=== PATIENT | male | born 1995 | race Caucasian/White ===

== ENCOUNTER 2020-01-15 19:21 | Emergency (ER) | payer BC ==
[2020-01-15 20:08] LABS: BASOPHILS # (AUTO) 0.1 10^3/uL (0.0-0.1); BASOPHILS % (AUTO) 0.9 %; EOSINOPHILS # (AUTO) 0.4 10^3/uL (0.0-0.7); EOSINOPHILS % (AUTO) 3.3 %; LYMPHOCYTES # (AUTO) 3.2 10^3/uL (1.5-3.5); LYMPHOCYTES % (AUTO) 28.9 %; MEAN CORPUSCULAR HGB CONC 35.6 g/dL (32.0-36.0); MEAN CORPUSCULAR VOLUME 84.3 fL (80.0-94.0); MEAN PLATELET VOLUME 9.1 fL (7.4-11.4); MONOCYTES % (AUTO) 8.9 %; NEUTROPHILS # (AUTO) 6.4 10^3/uL (1.5-6.6); NEUTROPHILS % (AUTO) 57.4 %; PLT - PLATELET COUNT 310 10^3/uL (130-450); RED BLOOD COUNT 5.34 10^6/uL (4.70-6.10); RED CELL DISTRIBUTION WIDTH 12.1 % (12.0-15.0); WHITE BLOOD COUNT 11.1 x10^3/uL (4.8-10.8)
[2020-01-15] MEDS ORDERED: LORazepam 2 MG/ML VIAL IVP STA (20:12)
[2020-01-15] MEDS ORDERED: KETOROLAC 30 MG/ML VIAL IVP STA (20:12)
--- NOTE | 2020-01-15 20:13 | XRAY Report ---
Reason: Chest Pain Procedure Date: 01/15/2020 Accession Number: [id number] / [id number] Procedure: XR - Chest 1 View X-Ray CPT Code: 33562 Final Report FULL RESULT: EXAM: CHEST RADIOGRAPHY EXAM DATE: 01/15/2020 08:08 PM. CLINICAL HISTORY: Chest Pain. COMPARISON: None. TECHNIQUE: 1 view. FINDINGS: Lungs/Pleura: No focal opacities evident. No pleural effusion. No pneumothorax. Mediastinum: Within exam limitations, the cardiomediastinal contour is normal. Other: None. IMPRESSION: Normal single view chest. RADIA
[2020-01-15 20:21] LABS: ALBUMIN 4.3 g/dL (3.2-5.5); ALBUMIN/GLOBULIN RATIO 1.2 (1.0-2.2); BILIRUBIN,TOTAL 0.9 mg/dL (0.2-1.0); CALCIUM 9.3 mg/dL (8.5-10.3); CREATININE 1.2 mg/dL (0.6-1.2); TOTAL PROTEIN 7.8 g/dL (6.7-8.2)
--- NOTE | 2020-01-15 20:26 | ED Physician Documentation ---
PD HPI CHEST PAIN - Stated complaint Stated Complaint: CHEST/UPPER BACK PX - Chief complaint Chief Complaint: Cardiac - History obtained from History obtained from: Patient - History of Present Illness Timing - onset: Yesterday Timing - onset during: Rest Timing - duration: Days (2-3) Timing - details: Gradual onset, Constant Pain level max: 2 Pain level now: 1 Quality: Aching. No: Pressure, Tightness, Sharp, Tearing, Dull, Stabbing, Throbbing, Indigestion Radiation: No: Jaw, Neck, Back, Abdominal, Left upper extremity, Right upper extremity Improved by: Rest Worsened by: Inspiration (He only feels is at the end of a very deep inspiration) Associated symptoms: No: Shortness of air, Diaphoresis, Nausea, Vomiting, Feeling faint / dizzy, General Weakness, Palpitations, Cough Similar symptoms before: Has not had sx before - Additional information Additional information: 24-year-old male presents to the emergency department stating that he has left upper chest pain and left back chest pain. This is mainly at the end of a very deep breath. This been constant for 3 days. He states that he stopped smoking marijuana a few months ago and started smoking cigarettes. He is very concerned that he may have cancer. He is tearful in the emergency department. Appears very anxious. Better with rest, worse with deep breathing. No recent travel. No recent illness. No history of blood clots. No recent immobilization. Review of Systems Constitutional: denies: Fever, Chills Cardiac: denies: Palpitations Respiratory: denies: Dyspnea, Cough, Hemoptysis, Wheezing GI: denies: Abdominal Pain, Nausea, Vomiting Skin: denies: Rash Musculoskeletal: denies: Neck pain, Back pain Neurologic: denies: Headache PD PAST MEDICAL HISTORY - Past Medical History Past Medical History: Yes Psych: Depression, Anxiety - Past Surgical History Past Surgical History: No - Present Medications Home Medications: Ambulatory Orders Medication Instructions Recorded Confirmed Bupropion HCl [Wellbutrin] 06/29/14 06/29/14 - Allergies Allergies/Adverse Reactions: Allergies Allergy/AdvReac Type Severity Reaction Status Date / Time No Known Drug Allergies Allergy Verified 01/15/20 20:23 - Social History Does the pt smoke?: Yes Smoking Status: Current every day smoker Does the pt drink ETOH?: No Does the pt have substance abuse?: Yes Substance Use and Type: Marijuana - Family History Family history: reports: Non contributory PD ED PE NORMAL - Vitals Vital signs reviewed: Yes - General General: Alert and oriented X 3, Well developed/nourished, Other (Tearful and anxious) - HEENT HEENT: PERRL, Ears normal, Moist mucous membranes, Pharynx benign - Neck Neck: Supple, no meningeal sign, No bony TTP, No JVD, No bruit - Cardiac Cardiac: RRR, No murmur, Strong equal pulses - Respiratory Respiratory: No respiratory distress, Clear bilaterally - Abdomen Abdomen: Soft, Non tender, Non distended - Back Back: No spinal TTP, Other (No tenderness over the back or the chest wall. No crepitus. No ecchymosis) - Derm Derm: Warm and dry, No rash - Extremities Extremities: No edema, No calf tenderness / cord - Neuro Neuro: Alert and oriented X 3 - Psych Psych: Other (Very anxious) Results - Vitals Vitals: Vital Signs - 24 hr 01/15/20 01/15/20 01/15/20 19:26 20:35 20:41 Temperature 36.1 C L Heart Rate 94 71 Respiratory 16 19 Rate Blood Pressure 124/78 134/80 H O2 Saturation 99 99 Oxygen O2 Source Room air - EKG (time done) 1940 Rate: Rate (enter#) (84) Rhythm: NSR [place]: Normal Intervals: Normal [place] QRS: Normal Ischemia: ST elevation c/w repol - Labs Labs: Laboratory Tests 01/15/20 01/15/20 01/15/20 20:00 20:00 20:00 WBC 11.1 H RBC 5.34 Hgb 16.0 Hct 45.0 MCV 84.3 MCH 30.0 MCHC 35.6 RDW 12.1 Plt Count 310 MPV 9.1 Neut # (Auto) 6.4 Lymph # (Auto) 3.2 [place] # (Auto) 1.0 Eos # (Auto) 0.4 Baso # (Auto) 0.1 Absolute Nucleated RBC 0.00 Nucleated RBC % 0.0 Sodium 139 Potassium 3.6 Chloride 108 Carbon Dioxide 23 Anion Gap 8.0 BUN 18 Creatinine 1.2 Estimated GFR (MDRD) 74 L Glucose 102 H Calcium 9.3 Total Bilirubin 0.9 AST 19 ALT 22 Alkaline Phosphatase 77 Troponin I High Sens < 2.3 L Total Protein 7.8 Albumin 4.3 Globulin 3.5 Albumin/Globulin Ratio 1.2 Lipase 49 - Rads (name of study) Chest x-ray Radiology: Prelim report reviewed, EMP read contemporaneously, See rad report (No acute abnormality) PD MEDICAL DECISION MAKING - ED course Complexity details: reviewed results, re-evaluated patient, considered differential (No ST elevation [place], no aortic dissection, no PE, no tension pneumothorax, no aortic aneurysm), d/w patient ED course: Symptoms resolved with Toradol and Ativan. He feels much better. Appears to have had a panic attack. Possible mild inflammation, such as pleurisy from his cigarette smoking. No hypoxia. No tachypnea. No wheezing. We will have him follow-up with his doctor for further care. Patient counseled regarding signs and symptoms for which I believe and urgent re-evaluation would be necessary. Patient with good understanding of and agreement to plan and is comfortable going home at this time This document was made in part using voice recognition software. While efforts are made to proofread this document, sound alike and grammatical errors may occur. No evidence of pulmonary embolism Departure - Departure Disposition: 01 Home, Self Care Clinical Impression: Anxiety Chest pain Qualifiers: Chest pain type: unspecified Qualified Code(s): R07.9 - Chest pain, unspecified Condition: Good Instructions: ED Chest Pain Atypical Unkn Cause, ED Panic Attack Follow-Up: Your,doctor in 1 week [Other] Comments: Your testing is normal today. It does not show any evidence of a heart attack, blood clot in the lung, collapsed lung or cancer. Follow-up with your doctor for further care. Discharge Date/Time: 01/15/20 20:46
[2020-01-15 20:42] VITALS: BP 134/80
== END 2020-01-15 20:46 | disposition home or self-care (01) ==
LOC: ED 19:21
DX: F41.9 Anxiety disorder, unspecified (principal); R07.9 Chest pain, unspecified; F17.200 Nicotine dependence, unspecified, uncomplicated
CPT/HCPCS: 36415; 71045; 80053; 83690; 84484; 85025; 93005; 96374; 99284; J2060

== ENCOUNTER 2020-01-21 06:21 | Emergency (ER) | payer BC, OTHER ==
[2020-01-21 06:59] LABS: BASOPHILS # (AUTO) 0.1 10^3/uL (0.0-0.1); EOSINOPHILS # (AUTO) 0.4 10^3/uL (0.0-0.7); EOSINOPHILS % (AUTO) 4.1 %; HGB - HEMOGLOBIN 15.8 g/dL (14.0-18.0); LYMPHOCYTES # (AUTO) 3.2 10^3/uL (1.5-3.5); LYMPHOCYTES % (AUTO) 30.4 %; MEAN CORPUSCULAR HEMOGLOBIN 29.9 pg (27.0-31.0); MEAN CORPUSCULAR HGB CONC 35.4 g/dL (32.0-36.0); MEAN CORPUSCULAR VOLUME 84.5 fL (80.0-94.0); MEAN PLATELET VOLUME 9.1 fL (7.4-11.4); MONOCYTES # (AUTO) 0.9 10^3/uL (0.0-1.0); MONOCYTES % (AUTO) 8.1 %; NEUTROPHILS # (AUTO) 5.8 10^3/uL (1.5-6.6); NEUTROPHILS % (AUTO) 55.9 %; PLT - PLATELET COUNT 327 10^3/uL (130-450); RED BLOOD COUNT 5.28 10^6/uL (4.70-6.10); RED CELL DISTRIBUTION WIDTH 11.9 % (12.0-15.0); WHITE BLOOD COUNT 10.5 x10^3/uL (4.8-10.8)
[2020-01-21 07:08] LABS: ALBUMIN 4.3 g/dL (3.2-5.5); ALBUMIN/GLOBULIN RATIO 1.4 (1.0-2.2); BILIRUBIN,TOTAL 0.6 mg/dL (0.2-1.0); CREATININE 1.1 mg/dL (0.6-1.2); TOTAL PROTEIN 7.4 g/dL (6.7-8.2)
--- NOTE | 2020-01-21 07:27 | ED Physician Documentation ---
PD HPI GI BLEED - Stated complaint Stated Complaint: BLOODY STOOLS,LOWER BACK PX - Chief complaint Chief Complaint: Abd Pain - History obtained from History obtained from: Patient - History of Present Illness Timing - onset: How many years ago (1) Timing - duration: Years (1) Timing - details: Gradual onset, Still present, Waxing and waning Associated symptoms: BRBPR Contributing factors: No: Sick contact, Bad food, Travel, Recent antibiotics, Alcohol use, Aspirin use, NSAID use, Stress, Anticoagulated, Diabetes Worsened by: Other (BM) Similar symptoms before: Has not had sx before Recently seen: Not recently seen - Additional information Additional information: Previously well 24-year-old male has had an issue with some intermittent bloody stool for the past year. He does feel that he has some small mass that he can palpate near the rectum which will go away. He is here today because he has developed some pain in his lower back and anterior abdomen that it seems to be associated with his bowel movements. Review of Systems Constitutional: denies: Fever, Chills Ears: denies: Ear pain Nose: denies: Congestion Throat: denies: Sore throat Cardiac: denies: Chest pain / pressure Respiratory: denies: Dyspnea, Cough GI: reports: Abdominal Pain, Bloody / black stool. denies: Nausea, Vomiting, Constipation, Diarrhea : denies: Dysuria, Frequency Skin: denies: Rash Musculoskeletal: reports: Back pain. denies: Neck pain Neurologic: denies: Generalized weakness, Focal weakness, Numbness PD PAST MEDICAL HISTORY - Past Medical History Psych: Depression, Anxiety - Past Surgical History Past Surgical History: No - Present Medications Home Medications: Ambulatory Orders Medication Instructions Recorded Confirmed Bupropion HCl [Wellbutrin] 06/29/14 06/29/14 - Allergies Allergies/Adverse Reactions: Allergies Allergy/AdvReac Type Severity Reaction Status Date / Time No Known Drug Allergies Allergy Verified 01/15/20 20:23 - Social History Does the pt smoke?: Yes Smoking Status: Current every day smoker Does the pt drink ETOH?: No Does the pt have substance abuse?: Yes - Immunizations Immunizations are current?: No PD ED PE NORMAL - Vitals Vital signs reviewed: Yes (Hypertensive mild) - General General: Alert and oriented X 3, No acute distress, Well developed/nourished - HEENT HEENT: Atraumatic, PERRL, EOMI - Neck Neck: Supple, no meningeal sign - Respiratory Respiratory: No respiratory distress - Abdomen Abdomen: Soft, Non tender - Rectal Rectal: Other (Easily reducible soft external hemorrhoids at 6:00 without evidence of blood normal sphincter tone.) - Back Back: No CVA TTP, No spinal TTP - Derm Derm: Normal color, Warm and dry, No rash - Extremities Extremities: No deformity, No edema, No calf tenderness / cord - Neuro Neuro: Alert and oriented X 3, 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, No motor deficit, No sensory deficit, Normal speech Eye Opening: Spontaneous Motor: Obeys Commands Verbal: Oriented GCS Score: 15 - Psych Psych: Normal mood, Normal affect Results - Vitals Vitals: Vital Signs - 24 hr 01/21/20 06:28 Temperature 36.2 C L Heart Rate 72 Respiratory 22 Rate Blood Pressure 134/83 H O2 Saturation 100 Oxygen O2 Source Room air - Labs Labs: Laboratory Tests 01/21/20 01/21/20 01/21/20 06:50 06:50 07:15 WBC 10.5 RBC 5.28 Hgb 15.8 Hct 44.6 MCV 84.5 MCH 29.9 MCHC 35.4 RDW 11.9 L Plt Count 327 MPV 9.1 Neut # (Auto) 5.8 Lymph # (Auto) 3.2 [place] # (Auto) 0.9 Eos # (Auto) 0.4 Baso # (Auto) 0.1 Absolute Nucleated RBC 0.00 Nucleated RBC % 0.0 Sodium 136 Potassium 3.7 Chloride 106 Carbon Dioxide 20 L Anion Gap 10.0 BUN 17 Creatinine 1.1 Estimated GFR (MDRD) 82 L Glucose 108 H Calcium 9.0 Total Bilirubin 0.6 AST 16 ALT 22 Alkaline Phosphatase 76 Total Protein 7.4 Albumin 4.3 Globulin 3.1 Albumin/Globulin Ratio 1.4 Lipase 41 Urine Color YELLOW Urine Clarity CLEAR Urine pH 6.5 Ur Specific [place] 1.015 Urine Protein NEGATIVE Urine Glucose (UA) NEGATIVE Urine Ketones NEGATIVE Urine Occult Blood NEGATIVE Urine Nitrite NEGATIVE Urine Bilirubin NEGATIVE Urine Urobilinogen 0.2 (NORMAL) Ur Leukocyte Esterase NEGATIVE Ur Microscopic Review NOT INDICATED Urine Culture Comments NOT INDICATED - Rads (name of study) CT ab/pel without Radiology: Prelim report reviewed (Impression: Normal CT abdomen pelvis. No acute process identified to explain lower abdominal, rectal or low back pain), EMP read indepedently, See rad report PD MEDICAL DECISION MAKING - ED course Complexity details: reviewed old records, reviewed results, re-evaluated patient, considered differential, d/w patient ED course: 24-year-old male recently seen in the emergency department for panic attack is come back into the emergency department today with complaints of bloody stool for the past year and now pain radiating to his back with a bowel movement. He has been concerned over the past year about the possibility of cancer and we are undergoing imaging today with a CT scan of the abdomen pelvis with contrast. I suspect his pain that he is having is referred pain from the hemorrhoids themself.Imaging confirms no other acute process Departure - Departure Disposition: 01 Home, Self Care Clinical Impression: Hemorrhoids Qualifiers: Hemorrhoid type: first degree Qualified Code(s): K64.0 - First degree hemorrhoids Condition: Stable Instructions: ED Hemorrhoids Follow-Up: [facility] [Provider Group]
[2020-01-21 07:29] LABS: BILIRUBIN,URINE NEGATIVE (NEGATIVE); GLUCOSE, URINE (UA) NEGATIVE (NEGATIVE); KETONES,URINE (UA) NEGATIVE (NEGATIVE); LEUKOCYTE ESTERASE, URINE NEGATIVE (NEGATIVE); NITRITE,URINE NEGATIVE (NEGATIVE); OCCULT BLOOD,URINE NEGATIVE (NEGATIVE); PH,URINE 6.5 PH (5.0-7.5); PROTEIN,URINE NEGATIVE (NEGATIVE); UROBILINOGEN,URINE 0.2 (NORMAL) E.U./dL (NORMAL)
[2020-01-21 07:31] LABS: CLARITY,URINE CLEAR (CLEAR)
[2020-01-21] MEDS ORDERED: IOVERSOL 320 100 ML VIAL IVP ONE ×2 (07:34→12:57)
--- NOTE | 2020-01-21 08:06 | CT Report ---
Reason: rectal pain referred to back and lower abdomen Procedure Date: 01/21/2020 Accession Number: [id number] / [id number] Procedure: CT - Abdomen/Pelvis W CPT Code: Final Report FULL RESULT: EXAM: CT ABDOMEN AND PELVIS EXAM DATE: 01/21/2020 07:53 AM. CLINICAL HISTORY: Rectal pain referred to back and lower abdomen. COMPARISONS: None. TECHNIQUE: Routine helical CT imaging was performed through the abdomen and pelvis. IV contrast: 100 mL OPTIRAY 320. Enteric contrast: No. Reconstructions: Coronal and sagittal. In accordance with CT protocol optimization, one or more of the following dose reduction techniques were utilized for this exam: automated exposure control, adjustment of mA and/or KV based on patient size, or use of iterative reconstructive technique. FINDINGS: Lung Bases: Clear. Liver: Normal. No focal hepatic lesion. Gallbladder/Bile Ducts: Unremarkable. No visualized stones or biliary ductal dilatation. Spleen: Normal. Pancreas: Normal. Adrenal Glands: Normal. Kidneys and Ureters: Normal. No stones, hydronephrosis, or hydroureter. Peritoneal Cavity/Bowel: No evidence for bowel obstruction or acute inflammatory process. The appendix is normal. No free fluid, pneumoperitoneum, or adenopathy. Pelvic Organs: The bladder and visualized reproductive organs are within normal limits. Vasculature: Normal. Bones: Normal. Other: Unremarkable appearance of the visualized perianal soft tissues. IMPRESSION: Normal CT abdomen/pelvis. No acute process identified to explain lower abdominal, rectal, and low back pain. RADIA
[2020-01-21 08:42] VITALS: BP 128/79
== END 2020-01-21 08:42 | disposition home or self-care (01) ==
LOC: ED 06:21
DX: K64.0 First degree hemorrhoids (principal); F17.200 Nicotine dependence, unspecified, uncomplicated
CPT/HCPCS: 36415; 74177; 80053; 81003; 83690; 85025; 99284; Q9967; 81001; 87086

== ENCOUNTER 2021-02-25 13:10 | Outpatient (CLI) | payer BC, OTHER ==
--- NOTE | 2021-02-25 18:55 | Ultrasound Report ---
PROCEDURE: Testicle INDICATIONS: PAIN IN SCROTUM TECHNIQUE: Real-time scanning was performed of the scrotum and testicles, with image documentation. Color and p ulse Doppler interrogation was performed of both testicles. COMPARISON: None. FINDINGS: Right: Testicle is normal in size at 4.4 x 2 x 2.2 cm, and homogenous in echotexture. Epididymis is normal in overall size and demonstrates a 3 mm epididymal head cyst. There is a trace right-sided hy drocele. Overlying scrotal skin is normal in thickness. Left: Testicle is normal in size at 4.2 x 2.1 x 2.5 cm, and homogeneous in echotexture. Epididymis is normal in overall size and morphology. There is a trace left-sided hydrocele. Overlying scrotal s kin is normal in thickness. Doppler: Color and pulse Doppler demonstrate normal and symmetric arterial flow in both testicles. N o varicoceles are seen. IMPRESSION: Normal-appearing, symmetric testicles, with normal-appearing, symmetric vascularity. A cause of scrotal pain is not identified. Reviewed by: Charles Payan MD on 02/25/2021 5:53 PM ANIKET Approved by: Charles Payan MD on 02/25/2021 5:53 PM ANIKET Station ID: [id number]
== END 2021-02-25 13:11 | disposition home or self-care (01) ==
LOC: DI 13:10
PROVIDERS: ATTEND Nurse Practitioner Family
DX: N50.82 Scrotal pain (principal)